=== PATIENT | male | born 1930 | race Caucasian/White ===

== ENCOUNTER 2017-11-05 12:52 | Inpatient (IN) | payer OTHER, MEDICARE ==
[~2017-11-05] VITALS: Ht 188 cm; Wt 97.3 kg
[~2017-11-05 12:52] MED LIST: ASPIR 8181 M1 PO; ASPIR-LOW81 MG PO; CALCIUM 500 MG1 EACH PO; CILOSTAZOL100 MG PO; CLOBETASOL PROP60 GM TP; CORMAX50 M1 TP; COZAAR100 MG PO; DAILY VALUE1 EACH PO; DIOVAN160 MG PO; DOVONEX 0.005%60 GM PO; DULCOLAX10 MG PR; ENEMA133 M2 PR; EXPECTORAN100 MG/52 PO; FLORASTOR250 MG PO; GERI-LANTA LIQ355 ML PO; HYDROCORTISONE30 G3 TP; LEVAQUIN500 MG PO; LOPRESSOR25 MG PO; LOSARTAN POTAS100 MG PO; METOPROLOL TART50 MG PO; MILK OF MAGN PO; PERCOCET 5/31 TABLET PO; PROTONIX40 MG PO; SIMVASTATIN20 MG PO; TEMOVATE 0.05%60 GM TP; TYLENOL EXTRA500 MG PO
[2017-11-05 14:07] LABS: APPEARANCE CLEAR ((CLEAR)); BILIRUBIN NEGATIVE; BLOOD SMALL; COLOR YELLOW ((YELLOW)); GLUCOSE (STRIP) NEGATIVE; KETONES 20; LEUKOCYTES TRACE; NITRITE NEGATIVE; PROTEIN (STRIP) 30; SPECIFIC GRAVITY 1.027 (1.000-1.030)
[2017-11-05 14:11] LABS: BACTERIA NONE SEEN /HPF; EPITHELIAL CELLS RARE /HPF; MUCUS TRACE /LPF; RED BLOOD CELLS 0-5 /HPF (0-5); UCUL ADDED? YES
[2017-11-05 14:19] LABS: BASOPHIL (%) 0.4 % (0-1); EOSINOPHIL (%) 0.5 % (0-5); HEMATOCRIT 40.6 % (38.0-50.0); HEMOGLOBIN 13.7 G/DL (12.5-16.6); IMMATURE GRANULOCYTE (%) 0.4 % (0.0-0.7); LYMPHOCYTE (%) 12.7 % (15-42); LYMPHOCYTE COUNT 0.7 K/uL (1.0-2.8); MCH 31.1 PG (29.0-34.0); MCHC 33.7 G/DL (30.0-36.0); MCV 92.3 FL (86-99); MONOCYTE (%) 8.3 % (3-12); MONOCYTE COUNT 0.5 K/uL (0-0.8); NEUTROPHIL (%) 77.7 % (45-76); NEUTROPHIL COUNT 4.4 K/uL (1.8-6.4); PLATELET COUNT 149 K/uL (156-360); RBC DIS.WIDTH-CV 13.2 % (11.8-14.6); RBC DIS.WIDTH-SD 44.6 % (39-53); WHITE BLOOD COUNT 5.7 K/uL (4.1-10.2)
[2017-11-05 14:38] LABS: ALBUMIN 4.1 g/dL (3.2-4.8)
[2017-11-05 14:39] LABS: CHLORIDE 107 mEq/L (99-109); POTASSIUM 3.8 mEq/L (3.7-5.4); SODIUM 144 mEq/L (136-147)
[2017-11-05 14:41] LABS: GLUCOSE 99 mg/dL (70-99); TOTAL PROTEIN 6.7 g/dL (6.4-8.3)
[2017-11-05 14:43] LABS: TOTAL BILIRUBIN 0.8 mg/dL (0.0-1.0)
[2017-11-05 14:44] LABS: ALKALINE PHOSPHATASE 86 IU/L (3-129)
[2017-11-05 14:45] LABS: GFR ESTIMATE (CALCULATED) > 59 mL/min/ (58.99-99999)
[2017-11-05 14:46] LABS: AST (GOT) 29 IU/L (2-34); UREA NITROGEN (BUN) 25 mg/dL (9-23)
[2017-11-05 14:47] LABS: TROP-I INTERPRETATION NEGATIVE; TROPONIN-I 0.03 ng/mL (0.0-0.30)
[2017-11-05 14:48] LABS: ALT (GPT) 24 IU/L (3-49); LIPASE 5 U/L (1.0-51.0)
[2017-11-05] MEDS ORDERED: ADULT ASPIRIN R81 MG PO (17:33)
[2017-11-05] MEDS ORDERED: NAMENDA10 MG PO (17:35)
[2017-11-05] MEDS ORDERED: SEROQUEL12.5 MG PO (17:36)
[2017-11-05] MEDS ORDERED: MIRTAZAPINE15 MG PO (17:37)
[2017-11-05] MEDS ORDERED: REFRESH TEARS15 ML BOTH EYES (17:37)
[2017-11-05] MEDS ORDERED: ARICEPT10 MG PO (17:37)
[2017-11-05 20:14] VITALS: BP 139/60
[2017-11-05 23:51] VITALS: BP 136/63
[2017-11-06 04:23] VITALS: BP 124/58
[2017-11-06 06:37] LABS: HEMATOCRIT 39.4 % (38.0-50.0); HEMOGLOBIN 12.9 G/DL (12.5-16.6); MCH 30.4 PG (29.0-34.0); MCHC 32.7 G/DL (30.0-36.0); MCV 92.9 FL (86-99); PLATELET COUNT 151 K/uL (156-360); RBC DIS.WIDTH-SD 44.6 % (39-53); RED BLOOD COUNT 4.24 M/uL (4.00-5.50); WHITE BLOOD COUNT 6.7 K/uL (4.1-10.2)
[2017-11-06 06:55] VITALS: BP 121/58
[2017-11-06 07:09] LABS: CHLORIDE 108 MEQ/L (99-109); CREATININE 0.8 MG/DL (0.6-1.3); GFR ESTIMATE (CALCULATED) > 59 mL/min/ (58.99-99999); GLUCOSE 92 mg/dL (70-99); SODIUM 143 MEQ/L (136-147); UREA NITROGEN (BUN) 21 mg/dL (9-23)
[2017-11-06 15:11] VITALS: BP 113/53
[2017-11-06 23:34] VITALS: BP 110/57
[2017-11-07 06:46] LABS: BASOPHIL (%) 0.4 % (0-1); EOSINOPHIL (%) 1.4 % (0-5); EOSINOPHIL COUNT 0.1 K/uL (0-0.3); HEMATOCRIT 38.5 % (38.0-50.0); HEMOGLOBIN 12.6 G/DL (12.5-16.6); IMMATURE GRANULOCYTE (%) 0.4 % (0.0-0.7); LYMPHOCYTE (%) 22.7 % (15-42); LYMPHOCYTE COUNT 1.1 K/uL (1.0-2.8); MCH 30.4 PG (29.0-34.0); MCHC 32.7 G/DL (30.0-36.0); MCV 92.8 FL (86-99); MONOCYTE (%) 9.1 % (3-12); MONOCYTE COUNT 0.5 K/uL (0-0.8); NEUTROPHIL COUNT 3.3 K/uL (1.8-6.4); PLATELET COUNT 131 K/uL (156-360); RBC DIS.WIDTH-SD 44.3 % (39-53); RED BLOOD COUNT 4.15 M/uL (4.00-5.50); WHITE BLOOD COUNT 4.9 K/uL (4.1-10.2)
[2017-11-07 06:56] VITALS: BP 161/77
[2017-11-07 07:05] LABS: CHLORIDE 107 MEQ/L (99-109); CREATININE 0.9 MG/DL (0.6-1.3); GFR ESTIMATE (CALCULATED) > 59 mL/min/ (58.99-99999); GLUCOSE 81 mg/dL (70-99); MAGNESIUM 2.2 mg/dl (1.3-2.7); POTASSIUM 3.7 MEQ/L (3.7-5.4); SODIUM 143 MEQ/L (136-147); UREA NITROGEN (BUN) 23 mg/dL (9-23)
[2017-11-07 15:14] VITALS: BP 152/65
[2017-11-07 23:26] VITALS: BP 163/74
[2017-11-08 07:21] VITALS: BP 147/70
[2017-11-08 15:11] VITALS: BP 95/53
[2017-11-08 16:50] VITALS: BP 108/55
[2017-11-08 23:49] VITALS: BP 170/74
[2017-11-09 07:27] VITALS: BP 165/69
[2017-11-09] MEDS ORDERED: LOSARTAN POTAS100 MG PO (12:42)
[2017-11-09 15:34] VITALS: BP 137/61
== END 2017-11-09 17:40 | DRG 641 ==
LOC: EME 12:52 → 5SOUTH 16:36 → EDOF 16:36 → ENRESERV 16:46 → EDOF 16:46 → ENRESERV 17:15 → 5SOUTH 19:57
PROVIDERS: Emergency Medicine; Internal Medicine; Physician Assistant
DX: E86.0 Dehydration (principal); R41.0 Disorientation, unspecified; L89.309 Pressure ulcer of unspecified buttock, unspecified stage; I48.0 Paroxysmal atrial fibrillation; R26.9 Unspecified abnormalities of gait and mobility; R53.1 Weakness; F03.90 Unspecified dementia, unspecified severity, without behavioral disturbance, psychotic disturbance, mood disturbance, and anxiety; E78.5 Hyperlipidemia, unspecified; I10 Essential (primary) hypertension; I25.10 Atherosclerotic heart disease of native coronary artery without angina pectoris; I73.9 Peripheral vascular disease, unspecified; Z87.74 Personal history of (corrected) congenital malformations of heart and circulatory system; Z95.1 Presence of aortocoronary bypass graft; Z95.2 Presence of prosthetic heart valve; Z87.891 Personal history of nicotine dependence; Z91.81 History of falling
CPT/HCPCS: 70450; 80048; 80053; 81003; 83690; 83735; 84484; 85025; 85027; 87040; 87086; 93005; 99281; 99285; J0696; J1650; J7030